=== PATIENT | female | born 1975 | race Caucasian/White ===

== ENCOUNTER 2017-09-26 20:56 | Emergency (ER) | payer BC | END 2017-09-26 21:51 | disposition home or self-care (01) | LOC: SCSER 20:56 | DX: H33.22 Serous retinal detachment, left eye (principal) | CPT/HCPCS: 99283 ==

== ENCOUNTER 2017-09-29 09:50 | Outpatient (CLI) | payer BC ==
--- NOTE | 2017-09-29 12:02 | MRI ---
BRAIN MRI WITH AND WITHOUT CONTRAST MRI ORBITS WITH AND WITHOUT CONTRAST: Date: 09/29/17 INDICATION: Optic neuritis, left-sided. Recent onset left side vision loss. FINDINGS: There is normal size of ventricular system. No midline shift or acute territorial infarction. There a re multifocal signal abnormalities of the bilateral cerebral hemispheres, many of which are pericallo keagan in distribution. There is also involvement of the corpus callosum. No definite pathology intra-ax ial enhancement is visualized. The imaged central and skull base flow-voids are patent. No evidence of retrobulbar mass. No enhancin g mass of either globe. The extraocular muscles demonstrate symmetric morphology, bilaterally. No pat hologic enhancement along either optic nerve. The pituitary infundibulum is at midline, and there is no mass effect upon the optic chiasm. There is no evidence of sellar mass. Right side mastoid fluid i s seen. IMPRESSION: 1. No acute orbital pathology is identified. 2. There are multifocal cerebral hemispheric signal abnormalities, predominantly pericallosal in dis tribution, in addition to callosal signal abnormalities. No pathologic enhancement. These findings fa vor demyelinating lesions, as can be seen with multiple sclerosis. Recommend correlation with CSF kelli lysis and neurology consultation. POS: [facility]
[2017-09-29] MEDS ORDERED: Gadobenate Dimeglumine 529 MG/1 ML (20ML VIAL) ONE (15:07)
== END 2017-09-29 09:51 | disposition home or self-care (01) ==
LOC: MRI 09:50
PROVIDERS: ATTEND Ophthalmology Retina Specialist
DX: H46.02 Optic papillitis, left eye (principal); R93.8 Abnormal findings on diagnostic imaging of other specified body structures
CPT/HCPCS: 70553; A9579

== ENCOUNTER 2018-03-21 14:27 | Outpatient (CLI) | payer BC | END 2018-03-21 14:28 | disposition home or self-care (01) | LOC: BICMAMMO 14:27 | PROVIDERS: ATTEND Obstetrics & Gynecology | DX: Z12.31 Encounter for screening mammogram for malignant neoplasm of breast (principal); N63.10 Unspecified lump in the right breast, unspecified quadrant; Z80.3 Family history of malignant neoplasm of breast | CPT/HCPCS: 77063; 77067 ==

== ENCOUNTER 2018-03-31 08:52 | Outpatient (CLI) | payer BC ==
--- NOTE | 2018-03-31 12:12 | ULT ---
ULTRASOUND RIGHT BREAST: Date: 03/31/18 HISTORY: Breast mass. COMPARISON: Mammogram same date. FINDINGS: Multiple small oil cysts within the right breast. There is also a cyst in the right breast at 8 o'chris ck measuring 5.0 mm, which in real-time is completely anechoic with increased through-transmission wi th some debris. There is a mass in the right breast, 8 o'clock, 7.0 cm from the nipple, with elongated margins. This mass is as tall as it is wide, with a tail. It is hypoechoic with some posterior acoustic shadowing. IMPRESSION: BIRADS Category 4 - Suspicious. Mass in right breast at 8 o'clock, 7.0 cm from the nipple, with a few angular margins measuring up to 11.0 mm. Ultrasound guided biopsy recommended. Dr. Amador notified of findings. CODE CR. POS: OFF
== END 2018-03-31 08:53 | disposition home or self-care (01) ==
LOC: BICMAMMO 08:52
PROVIDERS: ATTEND Obstetrics & Gynecology
DX: N63.13 Unspecified lump in the right breast, lower outer quadrant (principal); Z80.3 Family history of malignant neoplasm of breast
CPT/HCPCS: G0279

== ENCOUNTER 2018-04-06 11:49 | Outpatient (CLI) | payer BC | END 2018-04-06 11:50 | disposition home or self-care (01) | LOC: BICMAMMO 11:49 | PROVIDERS: ATTEND Specialist | DX: N63.10 Unspecified lump in the right breast, unspecified quadrant (principal) | CPT/HCPCS: G0279 ==

== ENCOUNTER 2018-06-06 10:16 | Outpatient (CLI) | payer BC ==
--- NOTE | 2018-06-06 13:49 | MRI ---
[facility] BREAST W W/O CONT BILAT History: [R 92.8 breast lesion on mammography.] Comparison: Mammogram March 31, 2018, ultrasound March 31, 2018, mammogram March 21, 2018 Findings: Multiplanar multisequence MRI of the breasts was performed prior to and after the intraveno us administration of contrast. The exam was reviewed on an independent 3-D workstation. There are scattered fibroglandular densities. Mild background parenchymal enhancement. Corresponding to the area of interest in the 8:00 region of the right breast is a triangular-shaped m ildly T2 hyperintense focus without any significant enhancement measuring up to 9 mm. No solid suspic ious enhancing mass within either breast. There are clusters of microcysts in the upper outer right breast. No axillary or internal mammary rogelio nopathy. The visualized sternum and manubrium appear normal. No abnormal hepatic enhancing mass. Impression: BI-RADS 2, benign findings. Continued annual mammographic screening is recommended..
== END 2018-06-06 10:17 | disposition home or self-care (01) ==
LOC: BICMRI 10:16
PROVIDERS: ATTEND Specialist
DX: R92.8 Other abnormal and inconclusive findings on diagnostic imaging of breast (principal)
CPT/HCPCS: C8908

== ENCOUNTER 2019-03-31 08:55 | Outpatient (CLI) | payer BC ==
--- NOTE | 2019-03-31 10:19 | MMO ---
Bilateral MAMMO Bilat Screen [facility]. CLINICAL HISTORY: Patient is 44 years old and is seen for screening. VIEWS: The views performed were: . FILMS COMPARED: The present examination has been compared to prior imaging studies performed at [facility] on 03/21/2018, 03/31/2018 and 06/06/2018. This study has been interpreted with the assistance of computer-aided detection. MAMMOGRAM FINDINGS: There are scattered fibroglandular densities. Finding 1: There are benign appearing calcifications seen in both breasts. There are benign scattered densities in both breasts. Finding 2: There is a stable biopsy clip seen in the right breast. There are no suspicious masses, suspicious calcifications, or new areas of architectural distortion. IMPRESSION: THERE IS NO MAMMOGRAPHIC EVIDENCE OF MALIGNANCY. A ROUTINE FOLLOW-UP MAMMOGRAM IN 1 YEAR IS RECOMMENDED. THE RESULTS OF THIS EXAM WERE SENT TO THE PATIENT. ACR BI-RADS Category 2 - Benign finding MAMMOGRAPHY NOTE: 1. A negative mammogram report should not delay a biopsy if a dominant of clinically suspicious mass is present. 2. Approximately 10% to 15% of breast cancers are not detected by mammography. 3. Adenosis and dense breasts may obscure an underlying neoplasm. Reported by: THOMAS BARCLAY MD Electonically Signed: [id number]
== END 2019-03-31 08:56 | disposition home or self-care (01) ==
LOC: BICMAMMO 08:55
PROVIDERS: ATTEND Specialist
DX: Z12.31 Encounter for screening mammogram for malignant neoplasm of breast (principal)
CPT/HCPCS: 77063; 77067

== ENCOUNTER 2020-04-04 08:17 | Outpatient (CLI) | payer BC ==
--- NOTE | 2020-04-04 09:02 | MMO ---
Bilateral MAMMO Bilat Screen [facility]. CLINICAL HISTORY: Patient is 45 years old and is seen for screening. The patient has the following family history of breast cancer: paternal grandmother. The patient has no personal history of cancer. The patient has a history of right needle biopsy in 2018 - benign - [facility]. VIEWS: The views performed were: bilateral craniocaudal with tomosynthesis and bilateral mediolateral oblique with tomosynthesis. FILMS COMPARED: The present examination has been compared to prior imaging studies performed at [facility] on 03/21/2018, 03/31/2018, 06/06/2018 and 03/31/2019. This study has been interpreted with the assistance of computer-aided detection. MAMMOGRAM FINDINGS: There are scattered fibroglandular densities. There are benign appearing calcifications in the right breast. Right biopsy clip. There are no suspicious masses, suspicious calcifications, or new areas of architectural distortion. IMPRESSION: THERE IS NO MAMMOGRAPHIC EVIDENCE OF MALIGNANCY. A ROUTINE FOLLOW-UP MAMMOGRAM IN 1 YEAR IS RECOMMENDED. THE RESULTS OF THIS EXAM WERE SENT TO THE PATIENT. ACR BI-RADS Category 2 - Benign finding MAMMOGRAPHY NOTE: 1. A negative mammogram report should not delay a biopsy if a dominant of clinically suspicious mass is present. 2. Approximately 10% to 15% of breast cancers are not detected by mammography. 3. Adenosis and dense breasts may obscure an underlying neoplasm. Reported by: MAKI SURESH MD Electonically Signed: [id number]
== END 2020-04-04 08:18 | disposition home or self-care (01) ==
LOC: BICMAMMO 08:17
PROVIDERS: ATTEND Specialist
DX: Z12.31 Encounter for screening mammogram for malignant neoplasm of breast (principal); Z80.3 Family history of malignant neoplasm of breast; Z91.89 Other specified personal risk factors, not elsewhere classified
CPT/HCPCS: 77063; 77067